=== PATIENT | male | born 1955 | race Caucasian/White ===

== ENCOUNTER → 2020-01-25 11:57 | Outpatient (CLI) | payer MEDICARE, BC ==
--- NOTE | ~2020-01-25 | EEG ---
PATIENT:AV MCCAIN MEDICAL RECORD: [id number] DATE OF : 51 LOCATION: [facility] ADMISSION DATE: 01/25/20 REFERRING PHYSICIAN: INTERPRETING PHYSICIAN: SNEHA RO MD DATE OF SERVICE: 01/25/2020 OUTPATIENT ELECTROENCEPHALOGRAM REPORT This outpatient recording was done on 01/25/[address] Sneha Ro. CASE HISTORY: A 64-year-old male with report of progressive memory disturbance for 7 years, has spells of prominent disorientation and memory disturbance. Procedure EEG done as a routine bedside portable recording using the standard 10-20 international electrode system. A 16-channel was used with 17 as EKG. Photic stimulation was done as activation procedures. DESCRIPTION: EEG opens with the patient awake with the record displaying fairly well organized posterior dominant rhythm of 10 Hz, this is of moderate amplitude, symmetric and attenuates with eye opening. Frequent bilateral independent single theta slow waves were seen some in a lengthy nonrhythmic runs of theta bitemporally prominently as well as occasional bilateral independent single delta slow waves were seen sometimes intermixed with theta. No epileptiform change such as spike, polyspike, or spike and wave was seen. Photic stimulation did not yield a significant driving response. There was a photomyogenic or photoparoxysmal response seen. IMPRESSION: Mild to moderately abnormal EEG with diffuse slowing that could suggest a degenerative process or be consistent with encephalopathy. No evidence of focal abnormality or seizure activity was seen. TRANSINT:[id number] Voice Confirmation ID: [id number] DOCUMENT ID: [id number] SNEHA RO MD CC: [id number] DICTATION DATE: 01/26/20 1303 BOILER ROOM HELPER: 01/27/20 1019 DEP CLI 01/25/20 [place] [id number] [place] [id number]
== END | disposition home or self-care (01) ==
LOC: D.CN 10:00 → D.MRI 15:00
PROVIDERS: ATTEND Psychiatry & Neurology Neurology
DX: G45.9 Transient cerebral ischemic attack, unspecified (principal); R41.9 Unspecified symptoms and signs involving cognitive functions and awareness; G45.0 Vertebro-basilar artery syndrome